=== PATIENT | male | born 2000 | race Two or more races ===

== ENCOUNTER 2025-01-27 22:17 | Emergency (ER) | payer MEDICAID, SELFPAY ==
[2025-01-27 22:18] VITALS: BMI 27.3
[2025-01-27 23:34] VITALS: BP 126/77; PULSE 68; RESP 16; TEMP 37; O2SAT 99
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
== END 2025-01-28 02:48 | disposition home or self-care (01) ==
PROVIDERS: Emergency Provider Emergency Medicine
DX: S80.11XA Contusion of right lower leg, initial encounter (principal); V29.99XA Rider (driver) (passenger) of other motorcycle injured in unspecified traffic accident, initial encounter
CPT/HCPCS: 73700; 99284